=== PATIENT | female | born 2000 | race African-American/Black ===

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

== ENCOUNTER 2018-02-10 16:16 | Emergency (ER) | payer OTHER ==
[~2018-02-10] VITALS: Ht 162.6 cm; Wt 72.7 kg
[2018-02-10 16:20] VITALS: Ht 162.6 cm; Wt 72.7 kg
[2018-02-10 16:47] LABS: BASOPHILS 0.7 % (0-2); EOSINOPHILS 5.8 % (0-7); HEMATOCRIT 39.4 % (36.0-48.0); HEMOGLOBIN 13.3 g/dL (12-16); IMMATURE GRANULOCYTES 0.2 % (0-5); LYMPHOCYTES 38.8 % (15-50); MCH 30.2 pg (26.0-34.0); MCHC 33.8 g/dL (31.0-37.0); MCV 89.3 fL (80.0-100.0); MEAN PLATELET VOLUME 9.4 fL (7.4-10.4); NEUTROPHILS 45.5 % (40-80); PLATELET COUNT 354 10x3/uL (130-400); RBC 4.41 10x6/uL (4.00-5.40); WBC 9.9 10x3/uL (4.8-10.8)
[2018-02-10 16:52] LABS: APPEARANCE CLEAR (CLEAR); BILIRUBIN NEGATIVE (NEGATIVE); COLOR YELLOW (YELLOW); GLUCOSE NEGATIVE (NEGATIVE); KETONE SMALL mg/dL (NEGATIVE); NITRITE NEGATIVE (NEGATIVE); PROTEIN NEGATIVE (NEGATIVE); UROBILINOGEN NORMAL (NORMAL)
[2018-02-10 16:53] LABS: HCG URINE NEGATIVE (NEGATIVE)
[2018-02-10 17:08] LABS: ALBUMIN 3.8 g/dL (3.4-5.0); ALKALINE PHOSPHATASE 45 U/L (46-116); ALT (SGPT) 11 U/L (10-68); AMYLASE - SERUM 58 U/L (25-115); CALC OSMOLALITY 270 mosm/kg (275-300); CALCIUM 8.8 mg/dL (8.5-10.1); CARBON DIOXIDE 23.2 mmol/L (21.0-32.0); CHLORIDE - SERUM 105 mmol/L (98-107); CREATININE - SERUM 0.6 mg/dL (0.6-1.3); GLUCOSE 87 mg/dL (74-106); LIPASE 135 U/L (73-393); POTASSIUM - SERUM 4.4 mmol/L (3.5-5.1); PROTEIN - SERUM 7.9 g/dL (6.4-8.2); SODIUM 136 mmol/L (136-145); UREA NITROGEN 13 mg/dL (7-18); eGFR NON AFRICAN AMERICAN > 90 mL/min (90-120)
[2018-02-10 17:10] LABS: BILIRUBIN - TOTAL 0.09 mg/dL (0.2-1.3)
[2018-02-10] MEDS ORDERED: EC-NAPROSYN500 MG PO (20:25)
[2018-02-10 21:30] VITALS: BP 128/80
== END 2018-02-10 21:30 | disposition home or self-care (01) ==
LOC: D.ER 16:16
PROVIDERS: Family Medicine
DX: N83.8 Other noninflammatory disorders of ovary, fallopian tube and broad ligament (principal); R11.0 Nausea